=== PATIENT | female | born 1950 | race American Indian/Alaskan Native ===

== ENCOUNTER 2022-09-07 09:35 | Day surgery (SDC) | payer MEDICARE, OTHER ==
[~2022-09-07 09:35] MED LIST: Bupivacaine 0.25% 30 ML SDV ONE; Lactated Ringers 1,000 ML IV SCH; Rocuronium 100 MG/10 ML MDV ONE; Ropivacaine 0.5% 5 MG/ML 30 ML SDV ONE; Sodium Chloride 0.9% 10 ML Syringe FLUSH PRN; Sodium Chloride 0.9% 2.5 ML Syringe FLUSH PRN; Sodium Chloride 0.9% 20 ML SDV IV PRN
[2022-09-07] MEDS ORDERED: Rocuronium Bromide 50 MG/5 ML Syringe ONE (09:50)
[2022-09-07] MEDS ORDERED: Propofol 200 MG/20 ML SDV ONE (09:50)
[2022-09-07] MEDS ORDERED: Lidocaine 2% 5 ML SDV ONE (09:50)
== END 2022-09-07 11:15 | disposition home or self-care (01) ==
LOC: MW.SDS 09:35
PROVIDERS: ATTEND Surgery
DX: Z12.11 Encounter for screening for malignant neoplasm of colon (principal); D12.5 Benign neoplasm of sigmoid colon; D12.3 Benign neoplasm of transverse colon; K62.89 Other specified diseases of anus and rectum; I10 Essential (primary) hypertension; K58.9 Irritable bowel syndrome, unspecified; G43.909 Migraine, unspecified, not intractable, without status migrainosus; Z90.49 Acquired absence of other specified parts of digestive tract; Z86.010 Personal history of colon polyps; Z88.1 Allergy status to other antibiotic agents; Z79.899 Other long term (current) drug therapy; Z98.890 Other specified postprocedural states; Z90.710 Acquired absence of both cervix and uterus
CPT/HCPCS: 45380; J2704; J2795; J3490; J7120